=== PATIENT | female | born 1990 | race Two or more races ===

== ENCOUNTER 2022-08-02 21:16 | Emergency (ER) | payer MEDICAID ==
[~2022-08-02] VITALS: Ht 162.6 cm; Wt 91.6 kg
[2022-08-02] MEDS ORDERED: KETOROLAC TROMETH 60MG/2ML VIAL IM ONE (22:15)
[2022-08-02] MEDS ORDERED: AMOX500T86 PO (22:21)
[2022-08-02] MEDS ORDERED: IBUP800T26 PO (22:21)
[2022-08-02] MEDS ORDERED: TRAM50TA2 PO (22:21)
[2022-08-02 22:37] VITALS: BP 115/67
== END 2022-08-02 22:56 | disposition home or self-care (01) ==
LOC: ER 21:16
DX: L05.01 Pilonidal cyst with abscess (principal)
CPT/HCPCS: 96372; 99283; J1885

== ENCOUNTER → 2022-08-16 | Emergency (ER) | payer MEDICAID ==
[~2022-08-16] VITALS: Ht 162.6 cm; Wt 91.4 kg
[~2022-08-16] MED LIST: AMOX500T86 PO; IBUP800T26 PO; TRAM50TA2 PO
[2022-08-16 09:20] VITALS: BP 121/82
[2022-08-16 09:47] LABS: Basophils # (auto) 0.1 10 ^3/uL (0-0.2); Basophils % (auto) 0.6 % (0.0-2.0); Eosinophils # (auto) 0.1 10 ^3/uL (0-0.8); Eosinophils % (auto) 0.8 % (0.0-7.0); Hemoglobin 13.8 g/dL (12.2-16.2); Lymphocytes # (auto) 2.2 10 ^3/uL (0.4-5.4); Lymphocytes % (auto) 21.5 % (10.0-50.0); Mean Corpuscular Hemoglobin 30.8 pg (28.0-32.0); Mean Corpuscular Hgb Conc. 34.4 g/dL (32.0-36.0); Mean Corpuscular Volume 89.4 fL (80.0-100.0); Monocytes # (auto) 0.5 10 ^3/uL (0-1.3); Monocytes % (auto) 4.8 % (0.0-12.0); Neutrophils # (auto) 7.4 10 ^3/uL (1.6-8.6); Neutrophils % (auto) 72.3 % (37.0-80.0); Red Blood Cells 4.48 10^6/uL (4.0-5.20); Red Cell Distribution Width 12.7 % (11.8-14.3); White Blood Cell 10.3 10^3/uL (4.4-10.8)
[2022-08-16 10:10] LABS: Urine Bacteria NONE SEEN /hpf (None Seen); Urine Blood Negative /uL (Negative); Urine Hyaline Cast FEW /lpf (0 - 2); Urine Mucus FEW (None Seen); Urine Specific Gravity 1.029 (1.001-1.035); Urine WBC 2 /hpf (0 - 5)
[2022-08-16 10:11] LABS: Albumin 3.2 g/dL (3.4-5.0); Calcium 8.9 mg/dL (8.5-10.1); Potassium 3.6 mmol/L (3.5-5.1)
[2022-08-16 10:14] LABS: BUN/Creatinine Ratio 14.8; Bilirubin, Total 0.3 mg/dL (0.2-1.0); Total Protein 7.6 g/dL (6.4-8.2)
== END | disposition home or self-care (01) ==
LOC: ER 09:15
DX: O46.8X1 Other antepartum hemorrhage, first trimester (principal); R10.2 Pelvic and perineal pain; Z3A.11 11 weeks gestation of pregnancy; Z88.1 Allergy status to other antibiotic agents
CPT/HCPCS: 36415; 76705; 76801; 80053; 81001; 84702; 85025; 86850; 86900; 86901

== ENCOUNTER 2022-10-30 07:34 | Emergency (ER) | payer MEDICAID ==
[~2022-10-30] VITALS: Ht 162.6 cm; Wt 91.8 kg
[2022-10-30 08:33] VITALS: BP 109/67
[2022-10-30] MEDS ORDERED: ACETAMINOPHEN 325 MG TAB PO STA (08:37)
[2022-10-30] MEDS ORDERED: ACET1CAP14 PO (08:45)
== END 2022-10-30 09:08 | disposition home or self-care (01) ==
LOC: ER 07:34
DX: O26.892 Other specified pregnancy related conditions, second trimester (principal); S63.502A Unspecified sprain of left wrist, initial encounter; Z3A.22 22 weeks gestation of pregnancy; X58.XXXA Exposure to other specified factors, initial encounter; Y93.89 Activity, other specified; Y92.89 Other specified places as the place of occurrence of the external cause; Y99.8 Other external cause status
CPT/HCPCS: 29125